=== PATIENT | female | born 1955 | race Caucasian/White ===

== ENCOUNTER 2022-06-22 04:14 | Day surgery (SDC) | payer BC, OTHER ==
[2022-06-22 06:41] VITALS: RESP 20
[2022-06-22] MEDS ORDERED: MIDAZOLAM HCL 2 MG/2 ML SINGLE DOSE VIAL ONE (08:45)
[2022-06-22 10:32] VITALS: BP 120/64; PULSE 70; TEMP 98.1
== END 2022-06-22 10:50 | disposition home or self-care (01) ==
LOC: JASU-SURG 04:14
PROVIDERS: ATTEND Urology
PROC: 0TF4XZZ Fragmentation in Left Kidney Pelvis, External Approach (ICD-10-PCS; principal; 2022-06-22 08:30)
DX: N20.0 Calculus of kidney (principal)
CPT/HCPCS: 82962

== ENCOUNTER 2023-02-05 11:36 | Inpatient (IN) | payer BC, OTHER ==
[2023-02-05] MEDS ORDERED: SODIUM CHLORIDE 500 ML IV ONE (11:50)
[2023-02-05] MEDS ORDERED: ACETAMINOPHEN 1000 MG/100 ML BAG IVPB ONE (11:52)
[2023-02-05] MEDS ORDERED: ACETAMINOPHEN INJECTION 100 ML IVPB ONE (12:22)
[2023-02-05 13:06] LABS: BASO % 0.8 % (0-2.0); EOS % 0.6 % (0-4.5); LYMPH % 14.8 % (8-40); MCH 31.5 pg (25.7-33.7); MCHC 33.3 g/dl (32.0-36.0); MEAN CELL VOLUME 94.5 fl (80-96); MEAN PLT VOLUME 8.4 fl (7.5-11.1); MONO % 3.7 % (3.8-10.2); NEUT % 80.1 % (42.8-82.8); PLATELET COUNT 288 10^3/uL (134-434); RBC 3.81 M/mm3 (3.60-5.2); RDW 14.1 % (11.6-15.6); WHITE BLOOD COUNT 14.4 K/mm3 (4.0-10.0)
[2023-02-05 13:20] LABS: POTASSIUM 3.9 mmol/L (3.5-5.1)
[2023-02-05 13:24] LABS: ALBUMIN 3.7 g/dl (3.4-5.0); BLOOD UREA NITROGEN 16.4 mg/dL (7-18); MAGNESIUM 1.8 mg/dL (1.8-2.4)
[2023-02-05 13:27] LABS: CREATININE 0.6 mg/dL (0.55-1.3)
[2023-02-05 13:28] LABS: TOT PROT 6.6 g/dl (6.4-8.2)
[2023-02-05 13:29] LABS: BILIRUBIN,TOTAL 0.8 mg/dL (0.2-1)
[2023-02-05 13:30] LABS: CALCIUM 9.3 mg/dL (8.5-10.1)
[2023-02-05] MEDS: DEXTROSE 5%-0.45% SALINE 1,000 ML IV SCH (15:49)
[2023-02-05] MEDS ORDERED: ALBUTEROL SO4 HFA INHALER IH SCH (16:45)
[2023-02-05] MEDS ORDERED: ALBUTEROL SO4 HFA INHALER IH PRN (17:25)
[2023-02-05 18:17] VITALS: BMI 27.9
[2023-02-05] MEDS ORDERED: ACETAMINOPHEN 1000 MG/100 ML BAG IVPB PRN (18:43)
[2023-02-05] MEDS: NICOTINE 14 MG/24 HOURS TOPICAL PATCH TD SCH (21:11)
[2023-02-05] MEDS: HEPARIN NA (PORCINE) 5,000 UNITS/ML 1ML VIAL SQ SCH (21:11)
[2023-02-06] MEDS: DEXTROSE 5%-0.45% SALINE 1,000 ML IV SCH ×3 (01:43→19:05)
[2023-02-06 08:52] LABS: BASO % 0.4 % (0-2.0); HEMATOCRIT 33.3 % (32.4-45.2); HEMOGLOBIN 11.1 GM/dL (10.7-15.3); LYMPH % 18.8 % (8-40); MCH 31.9 pg (25.7-33.7); MCHC 33.2 g/dl (32.0-36.0); MEAN CELL VOLUME 96.1 fl (80-96); MEAN PLT VOLUME 8.3 fl (7.5-11.1); MONO % 5.7 % (3.8-10.2); NEUT % 73.1 % (42.8-82.8); PLATELET COUNT 266 10^3/uL (134-434); RBC 3.46 M/mm3 (3.60-5.2); RDW 13.7 % (11.6-15.6); WHITE BLOOD COUNT 7.4 K/mm3 (4.0-10.0)
[2023-02-06 09:30] LABS: POTASSIUM 3.2 mmol/L (3.5-5.1)
[2023-02-06] MEDS: NICOTINE 14 MG/24 HOURS TOPICAL PATCH TD SCH (09:33)
[2023-02-06] MEDS: HEPARIN NA (PORCINE) 5,000 UNITS/ML 1ML VIAL SQ SCH ×2 (09:33→21:17)
[2023-02-06] MEDS: ROSUVASTATIN CA 20 MG TABLET PO SCH (09:33)
[2023-02-06 10:24] LABS: ALBUMIN 3.1 g/dl (3.4-5.0); BLOOD UREA NITROGEN 7.1 mg/dL (7-18); CALCIUM 8.8 mg/dL (8.5-10.1); CREATININE 0.5 mg/dL (0.55-1.3)
[2023-02-06 10:25] LABS: BILIRUBIN,TOTAL 0.5 mg/dL (0.2-1); TOT PROT 5.9 g/dl (6.4-8.2)
[2023-02-06] MEDS: KCL 10 MEQ IVPB 10 MEQ/100 ML INFUS.BAG IVPB SCH ×3 (17:50→23:55)
[2023-02-06] MEDS ORDERED: KCL 10 MEQ IVPB 10 MEQ/100 ML INFUS.BAG IVPB SCH (23:45)
[2023-02-07 08:53] VITALS: RESP 18
[2023-02-07 09:19] LABS: BASO % 0.5 % (0-2.0); EOS % 2.8 % (0-4.5); HEMATOCRIT 34.8 % (32.4-45.2); HEMOGLOBIN 11.7 GM/dL (10.7-15.3); LYMPH % 19.3 % (8-40); MCH 31.9 pg (25.7-33.7); MCHC 33.6 g/dl (32.0-36.0); MEAN CELL VOLUME 94.8 fl (80-96); MEAN PLT VOLUME 8.2 fl (7.5-11.1); MONO % 5.6 % (3.8-10.2); NEUT % 71.8 % (42.8-82.8); PLATELET COUNT 266 10^3/uL (134-434); RBC 3.67 M/mm3 (3.60-5.2); RDW 13.1 % (11.6-15.6); WHITE BLOOD COUNT 6.7 K/mm3 (4.0-10.0)
[2023-02-07] MEDS: NICOTINE 14 MG/24 HOURS TOPICAL PATCH TD SCH (09:34)
[2023-02-07] MEDS: ROSUVASTATIN CA 20 MG TABLET PO SCH (09:36)
[2023-02-07] MEDS: HEPARIN NA (PORCINE) 5,000 UNITS/ML 1ML VIAL SQ SCH ×2 (09:36→21:10)
[2023-02-07 10:07] LABS: POTASSIUM 3.6 mmol/L (3.5-5.1)
[2023-02-07 10:15] LABS: ALBUMIN 3.2 g/dl (3.4-5.0)
[2023-02-07 10:16] LABS: BLOOD UREA NITROGEN 6.5 mg/dL (7-18); CALCIUM 8.8 mg/dL (8.5-10.1)
[2023-02-07 10:18] LABS: CREATININE 0.5 mg/dL (0.55-1.3)
[2023-02-07 10:19] LABS: BILIRUBIN,TOTAL 0.5 mg/dL (0.2-1); TOT PROT 6.1 g/dl (6.4-8.2)
[2023-02-07] MEDS: busPIRone HCL 5 MG TABLET PO SCH (11:14)
[2023-02-07] MEDS: ACETAMINOPHEN 325 MG TABLET (FP) PO PRN (11:14)
[2023-02-07] MEDS: amLODIPine BESYLATE 5 MG TABLET (FP) PO SCH (13:51)
[2023-02-07] MEDS: DEXTROSE 5%-0.45% SALINE 1,000 ML IV SCH (16:38)
[2023-02-08] MEDS: DEXTROSE 5%-0.45% SALINE 1,000 ML IV SCH (08:54)
[2023-02-08] MEDS: busPIRone HCL 5 MG TABLET PO SCH (09:07)
[2023-02-08] MEDS: ROSUVASTATIN CA 20 MG TABLET PO SCH (09:07)
[2023-02-08] MEDS: amLODIPine BESYLATE 5 MG TABLET (FP) PO SCH (09:07)
[2023-02-08] MEDS: NICOTINE 14 MG/24 HOURS TOPICAL PATCH TD SCH (09:07)
[2023-02-08] MEDS: HEPARIN NA (PORCINE) 5,000 UNITS/ML 1ML VIAL SQ SCH ×2 (09:08→21:40)
[2023-02-08] MEDS: ACETAMINOPHEN 325 MG TABLET (FP) PO PRN (09:19)
[2023-02-08] MEDS ORDERED: ROSUVASTATIN CA 20 MG TABLET PO SCH (10:03)
[2023-02-08] MEDS: AMINO ACIDS 4.25%/D5W 1,000 ML IV SCH (15:52)
[2023-02-09] MEDS: AMINO ACIDS 4.25%/D5W 1,000 ML IV SCH ×2 (02:29→18:29)
[2023-02-09] MEDS: busPIRone HCL 5 MG TABLET PO SCH ×2 (09:00→21:10)
[2023-02-09] MEDS: NICOTINE 14 MG/24 HOURS TOPICAL PATCH TD SCH (09:00)
[2023-02-09] MEDS: amLODIPine BESYLATE 5 MG TABLET (FP) PO SCH (09:00)
[2023-02-09] MEDS: HEPARIN NA (PORCINE) 5,000 UNITS/ML 1ML VIAL SQ SCH ×2 (09:01→21:11)
[2023-02-09 09:25] LABS: HEMATOCRIT 34.9 % (32.4-45.2); HEMOGLOBIN 12.1 GM/dL (10.7-15.3); MCH 31.9 pg (25.7-33.7); MCHC 34.6 g/dl (32.0-36.0); MEAN CELL VOLUME 92.3 fl (80-96); MEAN PLT VOLUME 7.9 fl (7.5-11.1); PLATELET COUNT 337 10^3/uL (134-434); RBC 3.78 M/mm3 (3.60-5.2); RDW 13.1 % (11.6-15.6)
[2023-02-09 09:41] LABS: POTASSIUM 3.4 mmol/L (3.5-5.1)
[2023-02-09 09:44] LABS: ALBUMIN 3.3 g/dl (3.4-5.0)
[2023-02-09 09:45] LABS: BLOOD UREA NITROGEN 11.2 mg/dL (7-18); CALCIUM 9.1 mg/dL (8.5-10.1)
[2023-02-09 09:49] LABS: CREATININE 0.5 mg/dL (0.55-1.3)
[2023-02-09 09:51] LABS: BILIRUBIN,TOTAL 0.5 mg/dL (0.2-1); TOT PROT 6.4 g/dl (6.4-8.2)
[2023-02-09] MEDS ORDERED: POTASSIUM CHLORIDE TABS 20 MEQ TABLET.ER (FP) PO ONE (10:29)
[2023-02-09] MEDS: LOSARTAN POTASSIUM 50 MG TABLET PO SCH (11:15)
[2023-02-09] MEDS: ROSUVASTATIN CA 20 MG TABLET PO SCH (21:10)
[2023-02-10] MEDS: AMINO ACIDS 4.25%/D5W 1,000 ML IV SCH ×2 (05:38→16:15)
[2023-02-10] MEDS: NICOTINE 14 MG/24 HOURS TOPICAL PATCH TD SCH (09:52)
[2023-02-10] MEDS: busPIRone HCL 5 MG TABLET PO SCH ×2 (09:54→21:35)
[2023-02-10] MEDS: amLODIPine BESYLATE 5 MG TABLET (FP) PO SCH (09:54)
[2023-02-10] MEDS: LOSARTAN POTASSIUM 50 MG TABLET PO SCH (09:54)
[2023-02-10] MEDS: HEPARIN NA (PORCINE) 5,000 UNITS/ML 1ML VIAL SQ SCH ×2 (10:01→21:35)
[2023-02-10 10:44] LABS: HEMATOCRIT 37.5 % (32.4-45.2); HEMOGLOBIN 12.4 GM/dL (10.7-15.3); MCH 31.3 pg (25.7-33.7); MEAN CELL VOLUME 94.9 fl (80-96); MEAN PLT VOLUME 8.1 fl (7.5-11.1); PLATELET COUNT 332 10^3/uL (134-434); RBC 3.95 M/mm3 (3.60-5.2); RDW 13.1 % (11.6-15.6); WHITE BLOOD COUNT 6.3 K/mm3 (4.0-10.0)
[2023-02-10 11:02] LABS: POTASSIUM 4.2 mmol/L (3.5-5.1)
[2023-02-10 11:29] LABS: BLOOD UREA NITROGEN 16.4 mg/dL (7-18); CALCIUM 9.6 mg/dL (8.5-10.1)
[2023-02-10 11:30] LABS: ALBUMIN 3.5 g/dl (3.4-5.0)
[2023-02-10 11:31] LABS: TOT PROT 6.6 g/dl (6.4-8.2)
[2023-02-10 11:33] LABS: BILIRUBIN,TOTAL 0.4 mg/dL (0.2-1); CREATININE 0.5 mg/dL (0.55-1.3)
[2023-02-10] MEDS: ROSUVASTATIN CA 20 MG TABLET PO SCH (21:35)
[2023-02-11] MEDS: AMINO ACIDS 4.25%/D5W 1,000 ML IV SCH ×2 (02:15→09:37)
[2023-02-11] MEDS: NICOTINE 14 MG/24 HOURS TOPICAL PATCH TD SCH (09:20)
[2023-02-11] MEDS: LOSARTAN POTASSIUM 50 MG TABLET PO SCH (09:20)
[2023-02-11] MEDS: HEPARIN NA (PORCINE) 5,000 UNITS/ML 1ML VIAL SQ SCH ×2 (09:20→21:31)
[2023-02-11] MEDS: amLODIPine BESYLATE 5 MG TABLET (FP) PO SCH (09:20)
[2023-02-11] MEDS: busPIRone HCL 5 MG TABLET PO SCH ×2 (09:20→21:30)
[2023-02-11 09:43] LABS: HEMATOCRIT 36.8 % (32.4-45.2); HEMOGLOBIN 12.1 GM/dL (10.7-15.3); MCH 31.1 pg (25.7-33.7); MCHC 32.8 g/dl (32.0-36.0); MEAN CELL VOLUME 94.7 fl (80-96); MEAN PLT VOLUME 8.3 fl (7.5-11.1); PLATELET COUNT 344 10^3/uL (134-434); RBC 3.89 M/mm3 (3.60-5.2); RDW 13.6 % (11.6-15.6); WHITE BLOOD COUNT 6.5 K/mm3 (4.0-10.0)
[2023-02-11 10:07] LABS: POTASSIUM 3.6 mmol/L (3.5-5.1)
[2023-02-11 10:26] LABS: ALBUMIN 3.2 g/dl (3.4-5.0); CALCIUM 9.5 mg/dL (8.5-10.1)
[2023-02-11 10:29] LABS: CREATININE 0.6 mg/dL (0.55-1.3)
[2023-02-11 10:31] LABS: BILIRUBIN,TOTAL 0.3 mg/dL (0.2-1)
[2023-02-11] MEDS ORDERED: SIMETHICONE 80 MG TAB.CHEW (FP) PO PRN (13:59)
[2023-02-11] MEDS ORDERED: SODIUM CHLORIDE 1,000 ML IV SCH (14:00)
[2023-02-11] MEDS: DEXTROSE 5%-NORMAL SALINE 1,000 ML IV SCH (14:30)
[2023-02-11] MEDS: ROSUVASTATIN CA 20 MG TABLET PO SCH (21:30)
[2023-02-11] MEDS: PANTOPRAZOLE SOD 40 MG SUSPENSION PACKET PO SCH (21:30)
[2023-02-12] MEDS: DEXTROSE 5%-NORMAL SALINE 1,000 ML IV SCH (06:47)
[2023-02-12] MEDS: HEPARIN NA (PORCINE) 5,000 UNITS/ML 1ML VIAL SQ SCH (10:01)
[2023-02-12] MEDS: busPIRone HCL 5 MG TABLET PO SCH (10:02)
[2023-02-12] MEDS: amLODIPine BESYLATE 5 MG TABLET (FP) PO SCH (10:03)
[2023-02-12] MEDS: NICOTINE 14 MG/24 HOURS TOPICAL PATCH TD SCH (10:03)
[2023-02-12] MEDS: PANTOPRAZOLE SOD 40 MG SUSPENSION PACKET PO SCH (10:03)
[2023-02-12] MEDS: LOSARTAN POTASSIUM 50 MG TABLET PO SCH (10:03)
[2023-02-12 14:40] VITALS: BP 135/68; PULSE 71; TEMP 97.5
== END 2023-02-12 16:10 | disposition home or self-care (01) | DRG 387 ==
LOC: JER 11:36 → JERBED 15:17 → OBSVTOIN 16:44 → J6S 17:52
PROVIDERS: ADMIT Family Medicine; ATTEND Family Medicine
DX: K50.10 Crohn's disease of large intestine without complications (principal); G89.18 Other acute postprocedural pain; I10 Essential (primary) hypertension; E78.5 Hyperlipidemia, unspecified; F32.A Depression, unspecified; D72.829 Elevated white blood cell count, unspecified; K21.9 Gastro-esophageal reflux disease without esophagitis
CPT/HCPCS: 36415; 74019-TC-FY; 74176-TC; 80053; 82962; 83690; 83735; 85025; 85027; 86850; 86900; 86901; 87040; 99285-25; G0378; J1644